=== PATIENT | female | born 1995 | race Caucasian/White ===

== ENCOUNTER 2024-06-11 17:53 | Emergency (ER) | payer MEDICAID, SELFPAY ==
[2024-06-11 18:31] VITALS: BP 139/89; PULSE 62; RESP 16; TEMP 36.9; O2SAT 98; BMI 46.7
--- NOTE | 2024-06-11 18:55 | XR_ITS ---
Examination: PA lateral chest 2 views Technique: Upright PA lateral chest 2 views Exam date and time: June 11, 2024 1923 hrs. Indications: High blood pressure chest pain today. Findings: Normal heart size The film is underpenetrated No pneumonia or pulmonary edema Impression: No active disease
--- NOTE | 2024-06-11 18:55 | EKG_ITS ---
[facility] Test Date: 2024-06-11 Pat Name: KAREN PEARCE Department: Room: - Gender: Female Commercial Carpenter: : 1995 Requested By: Tim Arvizu ([facility]) Order Number: [id number] Reading MD: Tim Arvizu ([facility]) Measurements Intervals [place] Rate: 61 P: 33 RI: 166 QRS: 13 QRSD: 88 T: 49 QT: 387 QTc: 392 Interpretive Statements SINUS RHYTHM No previous ECG available for comparison /store/S0/[id number].pdf
--- NOTE | 2024-06-11 18:56 | PD.EDRME ---
Rapid Medical Screening Exam RME Arrival date/time: 06/11/24 17:53 28-year-old obese female presents emergency department complaining of chest pain and dizziness with elevated blood pressure that started today. Chief Complaint: Arrhythmia/Palpitations Time Seen by Provider: 06/11/24 18:50 Vital signs: Vital Signs Temperature 98.4 F 06/11/24 18:31 Pulse Rate 62 06/11/24 18:31 Respiratory Rate 16 06/11/24 18:31 Blood Pressure 139/89 H 06/11/24 18:31 Pulse Oximetry (%) 98 06/11/24 18:31 Oxygen Delivery Method Room Air 06/11/24 18:31 Vital signs reviewed by provider: Yes
[2024-06-11 19:36] LABS: Basophils # (Auto) 0.1 Thou/mm3 (0.0-0.2); Basophils % (Auto) 1 % (0-2.5); Eosinophils # (Auto) 0.2 Thou/mm3 (0.0-0.5); Eosinophils % (Auto) 2 % (0-10); Hematocrit 40.1 % (36.0-46.0); Hemoglobin 13.5 g/dL (12.0-16.0); Immature Granulocytes % (Auto) 0 % (0-0); Immature Granulocytes Auto 0.03 Thou/mm3 (0.00-0.00); Lymphocytes # (Auto) 2.8 Thou/mm3 (1.0-4.8); Lymphocytes % (Auto) 31 % (10-50); Mean Corpuscular HGB Conc 33.7 g/dl (31.0-37.0); Mean Corpuscular Hemoglobin 27.9 pg (25.0-35.0); Mean Corpuscular Volume 83 fL (80-100); Monocytes # (Auto) 0.6 Thou/mm3 (0.0-0.8); Monocytes % (Auto) 7 % (0-12); Neutrophils # (Auto) 5.4 Thou/mm3 (1.8-7.7); Neutrophils % (Auto) 60 % (37-80); Nucleated Red Blood Cell % 0 /100 WBC (0); Platelet Count 252 Thou/mm3 (140-440); RDW Standard Deviation 36.7 fL (36.4-46.3); Red Blood Count 4.84 Miln/mm3 (4.00-5.20)
[2024-06-11 19:57] LABS: Alanine Aminotransferase 88 U/L (10-49); Albumin, Serum 4.9 gm/dL (3.5-5.0); Albumin/Globulin Ratio 1.7 (1.2-2.2); Alkaline Phosphatase 70 U/L (46-116); Anion Gap 8 (7-16); Aspartate Amino Transferase 42 U/L (0-34); BUN/Creatinine Ratio 11 Ratio (12-20); Bilirubin,Total 0.3 mg/dL (0.3-1.2); Blood Urea Nitrogen 10 mg/dL (9-23); Calcium 9.9 mg/dL (8.3-10.6); Calcium (Corrected) 9.9 mg/dL (8.5-10.1); Carbon Dioxide 28.5 mMol/L (20.0-31.0); Chloride 104 mMol/L (98-107); Creatinine (Component) 0.9 mg/dL (0.6-1.3); Estimated Creatinine Clearance 116.6 mL/min (>60); Globulin 2.9 gm/dL (2.3-3.5); Glucose 83 mg/dL (74-106); Magnesium 2.1 mg/dL (1.6-2.6); Osmolality,Calculated 277 (275-295); Potassium 3.6 mMol/L (3.4-5.1); Sodium 140 mMol/L (136-145); Total Protein 7.8 gm/dL (5.7-8.2); Troponin I < 0.020 ng/mL (0.0-0.045); eGFR > 60 See Note
[2024-06-11 19:58] LABS: Partial Thromboplastin Time 22.2 Seconds (22.0-36.0); Prothrombin Time 10.9 Seconds (9.0-12.2)
[2024-06-11 20:05] LABS: HCG,Qualitative Serum Negative
[2024-06-11 20:17] LABS: Amphetamine/Methamp Scrn,U Negative (Negative); Barbiturate Screen,Urine Negative (Negative); Benzodiazepines Screen,Urine Negative (Negative); Benzoylecgonine Screen, Ur Negative (Negative); Fentanyl Screen,Urine Negative (Negative); Opiate Screen,Urine Negative (Negative); THC Screen,Urine Negative (Negative)
--- NOTE | 2024-06-11 20:26 | PD.EDARRY ---
ED Arrhythmia Palp. RME/HPI General Chief Complaint: Arrhythmia/Palpitations Stated Complaint: HYPERTENSION Time Seen by Provider: 06/11/24 18:50 Source: patient and family Arrival date/time: 06/11/24 17:53 28-year-old obese female presents emergency department complaining of chest pain and dizziness with elevated blood pressure that started today. Patient denies any fever, chills, cough, shortness of breath, nausea vomiting, or any other associated symptom. Mode of arrival: ambulatory Limitations: no limitations RME / HPI RME / HPI narrative: 06/11/24 17:53 28-year-old obese female presents emergency department complaining of chest pain and dizziness with elevated blood pressure that started today. Related Data Previous Rx's ?Medication ?Instructions ?Recorded cyclobenzaprine 10 mg tablet 10 mg PO TID PRN muscle spasm #14 01/23/21 tabs ibuprofen 600 mg tablet 600 mg PO Q6H PRN pain #30 tabs 01/23/21 Allergies Allergy/AdvReac Type Severity Reaction Status Date / Time strawberry Allergy Severe Hives Verified 06/11/24 17:57 Review of Systems Review of Systems Systems Reviewed: All systems reviewed, normal except as documented Constitutional Constitutional: Reports system reviewed and no additional complaints, except as documented, Denies body ache(s), Denies chills and Denies fever(s) Eyes Eyes: Reports system reviewed and no additional complaints, except as documented and Denies change in vision ENT Ears, Nose, Mouth, and Throat: Reports system reviewed and no additional complaints, except as documented, Denies disequilibrium, Denies dizziness, Denies sore throat and Reports vertigo Cardiovascular Cardiovascular: Reports system reviewed and no additional complaints, except as documented, Reports chest pain and Denies dyspnea Respiratory Respiratory: Reports system reviewed and no additional complaints, except as documented, Denies chest congestion, Denies cough and Denies dyspnea Gastrointestinal Gastrointestinal: Reports system reviewed and no additional complaints, except as documented, Denies abdominal pain, Denies nausea and Denies vomiting Musculoskeletal Musculoskeletal: Reports system reviewed and no additional complaints, except as documented, Denies abnormal gait and Denies arthralgias Integumentary/Breasts Skin/Breast: Reports system reviewed and no additional complaints, except as documented, Denies erythema, Denies rash and Denies wounds Neurologic Neurologic: Reports system reviewed and no additional complaints, except as documented, Denies abnormal gait, Denies disequilibrium, Denies dizziness and Reports vertigo Past Medical History Past Medical History NEUROLOGIC: Negative Neurological Disorders or Seizures CARDIAC: Negative Cardiac Disorders or Congestive Heart Failure RESPIRATORY: Negative Chronic Obstructive Pulmonary Disease (COPD) or Bronchitis GASTROINTESTINAL: Positive Gastrointestinal Disorders (CHOLECYSTECTOMY); Negative Hepatitis or Colorectal Cancer GENITOURINARY: Negative Genitourinary Disorders, Renal Disease or Prostate Cancer REPRODUCTIVE: Positive Previous Pregnancies; Negative Breast Cancer, Endometriosis, Pelvic Inflammatory Disease, Testicular Cancer or Uterine Prolapse MUSCULOSKELETAL: Negative Musculoskeletal Disorders or Bone Cancer ENDOCRINE: Negative Endocrine Disorders, Diabetes Mellitus Type 1 or Diabetes Mellitus Type 2 HEMATOLOGIC: Negative Blood Disorders or Anemia OTHER HISTORY: Positive Hospitalization (CHILDBIRTH); Negative Autoimmune Disease, Down Syndrome, Developmental Delay, Shingles, Falls, Blood Transfusions, Blood Transfusion Reaction, Anesthesia Reactions, Organ Transplant, Chemotherapy, Radiation Therapy, Hyperbaric Therapy, MRSA, VRSA, Vancomycin-Resistant Enterococci, Human Immunodeficiency Virus (HIV), Chicken Pox, Measles, Mumps, Rubella (Kittitian Measles), Pertussis, Clostridium Difficile, Cancer, Breast Cancer, Cervical Cancer, Colorectal Cancer, Lung Cancer, Ovarian Cancer, Prostate Cancer or Testicular Cancer Family History FAMILY HISTORY: Positive Family Psychiatric Problems (MOTHER-BIPOLAR AND DEPRESSION, BROTHER-DEPRESSION, SISTER-ANXIETY) and Family Cardiac Disorders (GRANDFATHER-HTN, HEART PROBLEMS, MOTHER-HTN, SISTER-HTN); Negative Family Respiratory Disorders, Family Gastrointestinal Problems, Family Cancer, Family Surgery or Family Anesthesia Reaction Surgical History SURGICAL: Positive Abdominal Surgery and Section (2016); Negative Organ Transplant Social History SMOKING STATUS: Never smoker SUBSTANCE USE: does not use ED Exam General Limitations: Present no limitations General appearance: Present alert and in no apparent distress Head Head exam: Present atraumatic Eye Eye exam: Present normal appearance, PERRL and EOMI ENT ENT exam: Present normal exam, normal oropharynx and mucous membranes moist Neck Neck exam: Present normal inspection, full ROM and trachea midline Chest Chest inspection: Present normal inspection and symmetric chest wall rise Respiratory Respiratory exam: Present normal lung sounds bilaterally Cardiovascular Cardiovascular exam: Present regular rate, normal rhythm and normal heart sounds Abdominal Exam Abdominal exam: Present soft and normal bowel sounds Extremities Exam Extremities exam: Present normal inspection and full ROM Back Exam Back exam: Present normal inspection and full ROM Neurological Exam Neurological exam: Present alert, oriented X3 and CN II-XII intact Psychiatric Psychiatric exam: Present normal affect and normal mood Skin Skin exam: Present warm, dry, intact and normal color Course Quality Measures none Orders Category Date Time Status EKG (ED ONLY) *Do not use* NOW Care 06/11/24 18:55 Completed EKG (ED Only) Stat Exams 06/11/24 18:55 Draft XR chest 2V Stat Exams 06/11/24 18:55 Completed CBC Stat Lab 06/11/24 19:12 Completed Comprehensive Metabolic Panel Stat Lab 06/11/24 19:12 Completed Drug Screen,Urine Stat Lab 06/11/24 19:46 Completed HCG,Qualitative Serum Stat Lab 06/11/24 19:12 Completed Mag [Magnesium] Stat Lab 06/11/24 19:12 Completed PT [Prothrombin Time with INR] Stat Lab 06/11/24 19:12 Completed PTT [Partial Thromboplastin Time] Stat Lab 06/11/24 19:12 Completed Troponin I Stat Lab 06/11/24 19:12 Completed Vital Signs Vital signs: Vital Signs Temperature 98.4 F 06/11/24 18:31 Pulse Rate 62 06/11/24 18:31 Respiratory Rate 16 06/11/24 18:31 Blood Pressure 139/89 H 06/11/24 18:31 Pulse Oximetry (%) 98 06/11/24 18:31 Oxygen Delivery Method Room Air 06/11/24 18:31 98% room air within normal limits Procedures -ED EKG Interpretation #1: Date of EK06/11/24 Time of EK:13 Rate: 61 Interpretation: Interpreted by me EKG Impression: Normal sinus rhythm, No acute ST-T changes, No ectopy, No ischemic changes and Normal QRS Arrhythmia/Palpitations [facility] Narrative MDM Narrative:: 28-year-old obese female presents emergency department complaining of chest pain and dizziness with elevated blood pressure that started today. Patient denies any fever, chills, cough, shortness of breath, nausea vomiting, or any other associated symptom. CBC was unremarkable for any leukocytosis. CMP was unremarkable for any elevated LFTs. EKG sinus rhythm and normal troponins x 2. Chest x-ray was unremarkable for any pneumonic infiltrates. Urinalysis was unremarkable. Patient appears nontoxic and hemodynamically stable. Patient GCS of 15 with steady gait. Patient discharged instructed to follow-up with primary care provider upon discharge and return to emergency department for any worsening symptoms or as needed. Patient data External records reviewed:: [facility] previous records Clinical information provided by:: patient Social determinants that could affect healthcare access:: none Patient has the following chronic illnesses:: N/A How is presenting disease/condition affected by chronic disease/condition?: no chronic disease Evaluation data The following diagnostics were reviewed and interpreted by me:: lab results, radiology exam(s) and EKG tracing(s) Lab and/or radiology exams considered but not ordered:: Ordered Interpretation Summary: Interpreted by me Medications / Prescriptions Medications or Prescriptions considered but not ordered:: N/A Medication administrations:: N/A Consultations Consultation(s) initiated? (list below): No Diagnosis Differential diagnosis arrhythmia/palpitations: palpitations, anxiety and other (ST elevation myocardial infarction, gallstones, biliary colic) Most likely diagnosis given after review of the tests above:: Noncardiac chest pain Admission Indicated Admission indicated?: not indicated Admission Request Was there a request for admission?: No Disposition Plan Disposition Plan: Discharge Discharge Attestation Discharge Attestation: The patient and all family members were given an opportunity to ask questions and understood the discharge instructions. Discharge instructions specifically effects, indications for sooner follow up or return to the emergency department, and the expected course of current diagnosis. Patient condition: Stable Discharge Plan Plan Patient Disposition: HOME (Self Care) Disposition Comment: Stable Prescriptions/Referrals Prescriptions/Med Rec: No Action ibuprofen 600 mg tablet 600 mg PO Q6H PRN (Reason: pain) Qty: 30 0RF cyclobenzaprine 10 mg tablet 10 mg PO TID PRN (Reason: muscle spasm) Qty: 14 0RF Referrals: Clifton Muñiz MD [Primary Care Provider] - In 1 week Problem List Clinical Impression: Chest pain, non-cardiac Patient/Caregiver Discharge Instructions Discharge Activity: activity as tolerated Education Materials: ED Chest Pain, Noncardiac Additional Instructions: Take Tylenol or ibuprofen as needed for pain. Follow-up with primary care provider upon discharge and request referral to cuprous chloride operator if symptoms persist. Return immediately to emergency department for any worsening symptoms or as needed. Print Language: [place] Islander Stand Alone Forms: Radha Award Info., Patient Portal Info Letter PA/MARGOTH Supervising Physician PA/MARGOTH Supervising Physician: Dr. Oleary
[2024-06-11 23:40] LABS: Troponin I < 0.020 ng/mL (0.0-0.045)
[2024-06-11 23:57] VITALS: BP 131/89; PULSE 62; RESP 16; TEMP 36.7; O2SAT 97
== END 2024-06-11 23:58 | disposition home or self-care (01) ==
PROVIDERS: Emergency Provider Emergency Medicine; PCP Family Medicine
DX: R07.89 Other chest pain (principal); I10 Essential (primary) hypertension
CPT/HCPCS: 36415; 71046; 80053; 80307; 83735; 84484; 84703; 85025; 85610; 85730; 93005; 99283

== ENCOUNTER 2025-03-28 05:34 | Inpatient (IN) | payer MEDICAID, SELFPAY ==
--- NOTE | 2025-03-26 09:16 | ESHP_ITS ---
RE: KAREN PEARCE : 1995 DATE OF ADMISSION: 03/28/2025 HISTORY OF PRESENT ILLNESS: This is a 29-year-old 3, para 2-0-0-2 with due date of 04/04 with intrauterine at 39 weeks on 03/28, who presents for repeat delivery. The patient is also multiparous and desires voluntary sterilization. She reports occasional contraction. She denies any leaking or bleeding. She reports normal movement. PAST MEDICAL HISTORY: Chronic hypertension, Rubella nonimmune, delivery, BMI 45, sciatica. FAMILY HISTORY: Aunt and nephew have autism. Mother has diabetes, hypertension, and heart disease. OBSTETRIC HISTORY: 2015, 39 weeks, delivery, 9 pound 1 ounce male. No complications. 2019, 40 weeks, delivery, 7 pound 13 ounce female. No complications. PAST SURGICAL HISTORY: delivery in 2015 and 2019 and appendectomy. MEDICATIONS: 1. vitamin 1 p.o. daily. 2. Aspirin 81 mg 1 p.o. daily. 3. Labetalol 100 mg 1 p.o. b.i.d. REVIEW OF SYSTEMS: She denies any chest pain, palpitations, cough, fever, shortness of breath or lower extremity pain. She denies any headache, change in vision or right upper quadrant pain. PHYSICAL EXAMINATION: VITAL SIGNS: Blood pressure 124/75, heart rate 88, respirations 18, temperature 98.6, weight 263 pounds. HEENT: Oropharynx and sclerae are clear. LUNGS: Clear to auscultation bilaterally. HEART: Regular rate and rhythm. ABDOMEN: Gravid term size. Old Pfannenstiel scar noted. EXTREMITIES: Nontender. SKIN: No gross rashes or lesions. NEUROLOGIC: No focal deficit. ASSESSMENT AND PLAN: Intrauterine at 39 weeks on 03/28. Previous delivery, elects repeat delivery, multiparity, desires voluntary sterilization, chronic hypertension. PLAN: delivery and bilateral tubal ligation. Informed consent was obtained. The patient was made aware of the risks, complications, alternatives, and benefits of the proposed procedure and she agrees. DT: 18:59:40 TT: 19:31:00 Ref: [id number] - TID: [id number] [facility]
[2025-03-27 09:13] LABS: Basophils # (Auto) 0.0 Thou/mm3 (0.0-0.2); Basophils % (Auto) 0 % (0-2.5); Eosinophils # (Auto) 0.1 Thou/mm3 (0.0-0.5); Eosinophils % (Auto) 1 % (0-10); Hematocrit 35.9 % (36.0-46.0); Hemoglobin 12.2 g/dL (12.0-16.0); Immature Granulocytes Auto 0.07 Thou/mm3 (0.00-0.00); Lymphocytes # (Auto) 1.9 Thou/mm3 (1.0-4.8); Lymphocytes % (Auto) 20 % (10-50); Mean Corpuscular HGB Conc 34.0 g/dl (31.0-37.0); Mean Corpuscular Hemoglobin 29.0 pg (25.0-35.0); Mean Corpuscular Volume 86 fL (80-100); Monocytes # (Auto) 0.6 Thou/mm3 (0.0-0.8); Monocytes % (Auto) 6 % (0-12); Neutrophils # (Auto) 7.0 Thou/mm3 (1.8-7.7); Neutrophils % (Auto) 72 % (37-80); Nucleated Red Blood Cell # 0.00 Thou/mm3 (0.00-0.00); Nucleated Red Blood Cell % 0 /100 WBC (0); Platelet Count 180 Thou/mm3 (140-440); RDW Standard Deviation 39.6 fL (36.4-46.3); Red Blood Count 4.20 Miln/mm3 (4.00-5.20); White Blood Count 9.7 Thou/mm3 (3.6-11.0)
[2025-03-27 09:36] LABS: Alanine Aminotransferase < 7 U/L (10-49); Albumin, Serum 3.9 gm/dL (3.5-5.0); Albumin/Globulin Ratio 1.5 (1.2-2.2); Alkaline Phosphatase 115 U/L (46-116); Anion Gap 8 (7-16); Aspartate Amino Transferase 11 U/L (0-34); BUN/Creatinine Ratio 8 Ratio (12-20); Bilirubin,Total 0.3 mg/dL (0.3-1.2); Blood Urea Nitrogen < 5 mg/dL (9-23); Calcium 9.4 mg/dL (8.3-10.6); Calcium (Corrected) 9.5 mg/dL (8.5-10.1); Carbon Dioxide 24.2 mMol/L (20.0-31.0); Chloride 107 mMol/L (98-107); Creatinine (Component) 0.6 mg/dL (0.6-1.3); Globulin 2.6 gm/dL (2.3-3.5); Glucose 90 mg/dL (74-106); Osmolality,Calculated 274 (275-295); Potassium 4.3 mMol/L (3.4-5.1); Sodium 139 mMol/L (136-145); Total Protein 6.5 gm/dL (5.7-8.2); eGFR > 60 See Note
[2025-03-27 09:39] LABS: INR 0.9 (0.9-1.3); Partial Thromboplastin Time 24.7 Seconds (22.0-36.0); Prothrombin Time 10.3 Seconds (9.0-12.2)
[2025-03-27 09:41] LABS: Syphilis Nonreactive (Nonreactive)
[2025-03-28] VITALS (18 sets, daily range): BP systolic 97–138; BP diastolic 60–90; PULSE 63–94; RESP 13–22; TEMP 36.7–37.1; O2SAT 96–99; BMI 46.4
[2025-03-28] MEDS: FAMOTIDINE INJ 10 MG/ML VIAL 2 ML 20 MG IV (07:26)
[2025-03-28] MEDS: ceFAZolin/D5W 2 GM IV 2 GM/100 ML BAG IV (07:26)
--- NOTE | 2025-03-28 07:34 | PD.ADDHP ---
Addendum History & Physical Addendum Date of report being addended: 03/28/25 Narrative: Pt changed her mind and does not desire to have a sterilization procedure during her C/S today.
--- NOTE | 2025-03-28 07:38 | ESOP_ITS ---
Operative Note - TRAVEL CLERK Procedure Date of procedure: 03/28/25 Procedure Performed: Repeat low-transverse section via Pfannenstiel skin Delivery assisted by Mityvac vacuum Indication: Intrauterine at 39 weeks and 0 days Previous delivery Elects repeat delivery Pre-Op diagnosis: Intrauterine at 39 weeks and 0 days Previous delivery Elects repeat delivery Post-Op diagnosis: Intrauterine at 39 weeks and 0 days Previous delivery Elects repeat delivery Pelvic adhesions Anesthesia type: Spinal Procedure description: After proper informed consent was obtained and the patient was made aware of the risks, complications, alternatives and benefits of the proposed procedure she was taken to the operating room where she underwent induction of spinal anesthesia. She was prepped and draped in the usual sterile fashion. A timeout was performed.? A Pfannenstiel skin incision was made with the scalpel and carried through to the underlying layer of fascia with the Bovie. The fascia was nicked in the midline incision and the incision was extended bilaterally with the Bovie. The inferior aspect of the fascial incision was grasped with Kailyn clamps elevated and the underlying rectus muscle dissected off with the Bovie. The superior aspect the fascial incision was grasped with Kailyn clamps elevated and the underlying rectus muscle dissected off with the Bovie. The rectus muscles were in the midline. The peritoneum was grasped between 2 Lord clamps and entered sharply with the Metzenbaum scissors. The peritoneum was extended superiorly and inferiorly with good visualization of the bladder. The vesicouterine peritoneum was incised transversely and the bladder flap created digitally. Pelvic adhesions of the bladder to the lower uterine segment req uired careful meticulous dissection to lyse adhesions. A Iron Belt blade was inserted. A low transverse incision was made in the uterus with a scapel and the incision was extended digitally. The 's head was unable to be delivered through the low transverse incision therefore a Mityvac vacuum was placed 3 cm forward with the posterior fontanelle over the sagittal suture. And on the first traction attempt the head delivered. The nuchal cord was reduced. The infant's head delivered and the mouth and nose were suctioned with the bulb suction. The shoulder and body delivered atraumatically. The cord was clamped after 30 second delayed cord clamping and the cord was cut.? The infant was handed off to the waiting Pediatric staff, cord blood was collected for lab testing. The placenta was removed complete and intact. The uterus was exteriorized and cleared of all clots and debris. The uterine incision was closed with #1-0 chromic catgut suture in a running interlocking fashion. A seco nd layer of the same suture was used to imbricate the first layer and obtain excellent hemostasis. The vesicouterine peritoneum was closed with 2-0 chromic catgut suture in a running fashion. The firm uterus was returned to the abdomen. The gutters were cleared of all clots and debris. The peritoneum was closed with 0 chromic catgut suture in running fashion. The rectus muscle was closed with 0 chromic catgut suture. The fascia was closed with 0 Vicryl beginning at each angle and ending in the center in a running fashion. The subcutaneous tissue was irrigated with warmed normal saline solution and found to be hemostatic. The subcutaneous tissue was closed with 2-0 chromic catgut suture in a running fashion. The skin was closed with 4-0 Monocryl. A Dermabond Prineo dressing was applied and a sterile pressure dressing was applied.? She tolerated the procedure well. Counts were correct. I discussed with the patient the nature of her condition, intraoperative findings and expectation for recovery all? questions answered. Specimen: none Findings: Live infant female APGARS 8 and 9 Weight 7 pounds 8 ounces Clear amniotic fluid Uterus, ovaries and tubes wnl. Placenta removed complete and intact. Adhesions of the bladder to the lower uterine segment Complications: none Surgical staff Devon Velazquezs AUDELIA Hunter, BRIANNA Lemon Surgeon Operation Date: 03/28/25 07:45 <No data on this case meets the specified criteria> Diagnosis Problem List Completed Was Problem List Reviewed/Reconciled?: Yes
--- NOTE | 2025-03-28 07:42 | PD.LDDS ---
DS: Providers Provider Date of admission: 03/28/25 05:34 Primary care physician: Physician No Primary/Family Admitting Provider: Chauncey Lemon MD Attending Provider on Admission: Chauncey Lemon MD Attending Provider on DC: Chauncey Lemon MD Discharging Provider: Chauncey Lemon MD DS: Diagnosis Problem List Completed Was Problem List Reviewed/Reconciled?: Yes Summary/Hosp Course Peripartum Data Procedures: Procedures Operation Date: 03/28/25 07:45 <No data on this case meets the specified criteria> Time Spent with Patient Time attestation: Total time spent providing and/or coordinating discharge services: Exam Vital Signs Temp Pulse Resp BP Pulse Ox O2 Del Method 98.3 F 70 20 138/90 H 99 Room Air 03/28/25 06:00 03/28/25 06:00 03/28/25 06:00 03/28/25 05:44 03/28/25 06:00 03/28/25 06:00 Discharge Plan Plan Patient Disposition: HOME (Self Care) Patient condition on transfer: Stable Prescriptions/Referrals Prescriptions/Med Rec: No Action ibuprofen 600 mg tablet 600 mg PO Q6H PRN (Reason: pain) Qty: 30 0RF cyclobenzaprine 10 mg tablet 10 mg PO TID PRN (Reason: muscle spasm) Qty: 14 0RF labetalol 100 mg tablet 100 mg PO Q12H Patient Comments: Take 1 tablet by mouth twice a day TAKE 1 TABLET BY MOUTH TWICE A DAY Referrals: No Primary/Family,Physician [Primary Care Provider] Patient/Caregiver Discharge Instructions Discharge Activity: activity as tolerated Other Discharge Activity Instructions:: She already has a Rx for [place] Follow up office 1 weeks. Education Materials: C Section Dc Print Language: [place]ian Stand Alone Forms: Radha Award Info., Patient Portal Info Letter Planned Discharge Date 03/30/25
[2025-03-28] MEDS: SIMETHICONE 80 MG CHEW PO (13:45)
[2025-03-28] MEDS: KETOROLAC INJ 30 MG/ML VIAL IVP (13:45)
[2025-03-28] MEDS: OXYTOCIN in NS 20 units 20 UNIT/1,000 ML BAG 125 UNIT IV (13:46)
[2025-03-28 14:02] LABS: Basophils # (Auto) 0.0 Thou/mm3 (0.0-0.2); Basophils % (Auto) 0 % (0-2.5); Eosinophils # (Auto) 0.0 Thou/mm3 (0.0-0.5); Eosinophils % (Auto) 0 % (0-10); Hematocrit 33.6 % (36.0-46.0); Hemoglobin 11.2 g/dL (12.0-16.0); Immature Granulocytes Auto 0.09 Thou/mm3 (0.00-0.00); Lymphocytes # (Auto) 1.6 Thou/mm3 (1.0-4.8); Lymphocytes % (Auto) 10 % (10-50); Mean Corpuscular HGB Conc 33.3 g/dl (31.0-37.0); Mean Corpuscular Hemoglobin 28.7 pg (25.0-35.0); Mean Corpuscular Volume 86 fL (80-100); Monocytes # (Auto) 0.9 Thou/mm3 (0.0-0.8); Monocytes % (Auto) 5 % (0-12); Neutrophils # (Auto) 13.9 Thou/mm3 (1.8-7.7); Neutrophils % (Auto) 84 % (37-80); Nucleated Red Blood Cell # 0.00 Thou/mm3 (0.00-0.00); Nucleated Red Blood Cell % 0 /100 WBC (0); Platelet Count 166 Thou/mm3 (140-440); RDW Standard Deviation 39.8 fL (36.4-46.3); Red Blood Count 3.90 Miln/mm3 (4.00-5.20); White Blood Count 16.5 Thou/mm3 (3.6-11.0)
[2025-03-28] MEDS: HYDROcodone/APAP 5/325 TABLET 1 TAB PO (21:07)
[2025-03-28] MEDS: RINGERS LACTATED 1000 ML 1,000 ML 100 ML IV (22:53)
[2025-03-29] MEDS: IBUPROFEN TAB 400 MG TABLET 800 MG PO ×3 (03:36→23:51)
[2025-03-29 03:55] VITALS: BP 110/66; PULSE 72; RESP 16; TEMP 36.9; O2SAT 97
--- NOTE | 2025-03-29 05:51 | PD.LDDELS ---
Data ([place]) Data Hx Section: Yes : 3 Delivery Data ([place]) Labor Data Induction/Augmentation Agent: None ROM date: 03/28/25 ROM time: 08:02 Amniotic membrane rupture type: Artificial Amniotic fluid description: Clear Delivery Data EDC: 04/04/25 EDC calculated by:: LMP/early US confirmation Onset of labor date: 03/28/25 Onset of labor time: 08:02 Complete dilation date: 03/28/25 Complete dilation time: 08:02 [place] delivery date: 03/28/25 [place] delivery time: 08:03 Gestational age (weeks): 39 Gestational age (days): 0 Placenta delivery date: 03/28/25 Placenta delivery time: 08:04 Stage 1 total time: Labor - Stage 1 Duration 0 minutes Delivered by: [place] Delivery nurse: Odalys Felizorn nurse: Crow Platform Loader at delivery: No Support person(s) at delivery: Grandmother of baby Other staff at delivery: Darren, AUDELIA Pickett, OB OR Tech Delivery Method Delivery method: Low Transverse Presentation: Vertex Anesthesia Type Anesthesia Type: Spinal Anesthesia type: Spinal Placenta Placenta delivery description: Manual Removal Cord blood sent to lab: Yes cord blood collection: Cord Blood Type Episiotomy Episiotomy description: None EBL Estimated blood loss (ml): 600 Umbilical Cord cord description: 3 Vessels and Nuchal Cord Additional Procedures Mityvac assisted (see OP note) Complications Complications: None [place] Data ([place]) Data order: 1 [place]'s gender: Female Identification band number: [id number] weight (gms): 7 lb 8.637 oz Weight (pounds): 7 lbs and 8.6 ozs [place] length: 19.75 in 1 minute: 8 5 minutes: 9
--- NOTE | 2025-03-29 06:24 | ESPR_ITS ---
RE: KAREN PEARCE : 1995 DATE OF SERVICE: 03/29/2025 SUBJECTIVE: Postop day #1, patient denies any problems or complaints. She is voiding. She is ambulating. She is tolerating a diet. She is passing flatus. She denies any excessive vaginal bleeding. She denies any dizziness or lightheadedness. She denies any chest pain, palpitations, shortness of breath or lower extremity pain. OBJECTIVE: Vital Signs: Blood pressure is 110/66, heart rate 92, respirations 16, temperature is 98.5, and pulse oximetry is 97% on room air. Lungs: Clear to auscultation bilaterally. Heart: Regular rate and rhythm. Abdomen: Nondistended. Dressing dry and intact. Fundus is firm. Extremities: Nontender. LABORATORY DATA: Hemoglobin predelivery is 12.2, postdelivery is 11.2. ASSESSMENT: Postop day #1, status post delivery. PLAN: Remove dressing, discontinue IV, encourage ambulation, fashion consultant, possible discharge home tomorrow. DT: 05:40:21 TT: 06:22:00 Ref: [id number] - TID: [id number]
[2025-03-29 08:50] VITALS: BP 101/62; PULSE 77; RESP 17; TEMP 36.6; O2SAT 95
[2025-03-29] MEDS: DOCUSATE SOD 100 MG CAPSULE PO (08:56)
[2025-03-29] MEDS: ENOXAPARIN SOD INJ 40 MG/0.4 ML SYRINGE SC (08:57)
[2025-03-29] MEDS: HYDROcodone/APAP 5/325 TABLET 1 TAB PO (09:04)
[2025-03-29 09:10] VITALS: BP 101/62; PULSE 77
[2025-03-29 12:04] VITALS: BP 119/78; PULSE 82; RESP 18; TEMP 36.8; O2SAT 97
[2025-03-29 20:15] VITALS: BP 133/84; PULSE 86; RESP 18; TEMP 36.6; O2SAT 97
[2025-03-29 20:27] VITALS: BP 133/84; PULSE 86
[2025-03-29] MEDS: LABETALOL 100 MG TABLET PO (20:27)
[2025-03-30 03:55] VITALS: BP 110/74; PULSE 94; RESP 18; TEMP 36.6; O2SAT 99
--- NOTE | 2025-03-30 04:36 | ESPR_ITS ---
RE: KAREN PEARCE : 1995 DATE OF SERVICE: 03/30/2025 Postop day number 2. The patient denies any problem or complaint. She is voiding. She is ambulating. She is tolerating regular diet. She is passing flatus. She denies any excessive vaginal bleeding. She denies any dizziness or lightheadedness. She denies any chest pain, palpitations, shortness of breath or lower extremity pain. OBJECTIVE: Vital Signs: Blood pressure 110/74, heart rate 94, respirations 18, temperature is 97.9, pulse oximetry is 99% on room air. Lungs: Clear to auscultation bilaterally. Heart: Regular rate and rhythm. Abdomen: Incision clear and intact. Fundus is firm. Extremities: Nontender. ASSESSMENT: Postoperative day number 2, status post delivery. PLAN: Discharge home. Discharge instructions given. Follow up in the office in 1 week. DT: 04:25:13 TT: 04:35:00 Ref: [id number] - TID: [id number]
[2025-03-30 07:40] VITALS: BP 131/82; PULSE 76; RESP 14; TEMP 36.4; O2SAT 99
[2025-03-30 08:06] VITALS: BP 131/82; PULSE 76
[2025-03-30] MEDS: DOCUSATE SOD 100 MG CAPSULE PO (08:06)
[2025-03-30] MEDS: LABETALOL 100 MG TABLET PO (08:06)
[2025-03-30] MEDS: ENOXAPARIN SOD INJ 40 MG/0.4 ML SYRINGE SC (08:07)
== END 2025-03-30 13:52 | disposition home or self-care (01) | DRG 539 ==
LOC: S4SX 07:41 → S4NX 07:48
PROVIDERS: Admitting Provider Specialist; Visit Provider Specialist
PROC: 10D00Z1 Extraction of Products of Conception, Low, Open Approach (ICD-10-PCS; CPT 59514; principal; 2025-03-28 07:30)
DX: O34.211 Maternal care for low transverse scar from previous cesarean delivery (principal); O69.81X0 Labor and delivery complicated by cord around neck, without compression, not applicable or unspecified; Z3A.39 39 weeks gestation of pregnancy; Z37.0 Single live birth; Z30.2 Encounter for sterilization; O16.4 Unspecified maternal hypertension, complicating childbirth; O99.892 Other specified diseases and conditions complicating childbirth; N73.6 Female pelvic peritoneal adhesions (postinfective)
CPT/HCPCS: 36415; 80053; 85025; 85610; 85730; 86780; 86850; 86870; 86900; 86901; 86921; 86922; 90707; A4217; A4314; A4649; J0689; J1200; J1650; J1885; J2274; J2371; J2590; J3490; J7120; A9270; J2270